=== PATIENT | male | born 1940 | race Caucasian/White ===

== ENCOUNTER 2020-04-28 07:32 | Day surgery (SDC) | payer BC, SELFPAY ==
[~2020-04-28] VITALS: Ht 182.9 cm; Wt 104.3 kg
[2020-04-28] MEDS ORDERED: KETOROLAC 60 MG/2 ML VIAL IM ONE (08:47)
[2020-04-28] MEDS ORDERED: LIDOCAINE 2% 100 MG/5 ML UJET TP ONE (08:52)
== END 2020-04-28 09:45 | disposition home or self-care (01) ==
LOC: MDS 07:32 → MFCC 07:44 → MDS 09:45
PROVIDERS: ATTEND Internal Medicine Gastroenterology
DX: K62.5 Hemorrhage of anus and rectum (principal); D12.4 Benign neoplasm of descending colon; Z20.828 Contact with and (suspected) exposure to other viral communicable diseases; M19.90 Unspecified osteoarthritis, unspecified site; Z88.6 Allergy status to analgesic agent; Z79.899 Other long term (current) drug therapy; E66.9 Obesity, unspecified; Z68.31 Body mass index [BMI] 31.0-31.9, adult
CPT/HCPCS: 45385; J1885; U0003